=== PATIENT | male | born 1975 | race Caucasian/White ===

== ENCOUNTER → 2022-01-23 | Emergency (ER) | payer MEDICAID ==
[~2022-01-23] VITALS: Ht 177.8 cm; Wt 95.0 kg
[~2022-01-23] MED LIST: ASPIRIN 81MG TABLET PO ONE; HYDROCODONE/ACETAMINOPHEN 5/325MG TABLET PO ONE; IBUP-2029 MT; IBUPROFEN 600MG TABLET PO ONE; MORPHINE SULFATE 4 MG/ML CPJ (NOT FOR IM USE) IV ONE; SODIUM CHLORIDE 0.9% 1,000 ML IV ONE
[2022-01-23 23:25] LABS: BASOPHILS % 0.3 % (0.0-2.0); EOSINOPHILS % 0.1 % (0.0-5.0); HEMATOCRIT. 39.1 % (42.0-52.0); HEMOGLOBIN. 13.4 g/dL (14.0-18.0); MEAN CORPUSCULAR HEMOGLOBIN 30.2 pg (28.0-32.0); MEAN CORPUSCULAR VOLUME 88.3 fL (80.0-94.0); MEAN PLATELET VOLUME 6.9 fl (7.4-10.4); MONOCYTES % 3.9 % (2.0-8.0); NEUTROPHILS % 85.7 % (40.0-76.0); PLATELET 289 x1000/uL (130-400); RED BLOOD CELL COUNT 4.43 mill/uL (4.7-6.1); RED CELL DISTRIBUTION WIDTH 13.3 % (11.6-14.6)
[2022-01-23 23:29] LABS: CHLORIDE 110 mEq/L (98-107)
[2022-01-23 23:38] LABS: ETHANOL BLOOD < 10 mg/dL
[2022-01-24 04:37] VITALS: BP 111/73
== END ==
LOC: ER 19:19
DX: S52.92XA Unspecified fracture of left forearm, initial encounter for closed fracture (principal); I10 Essential (primary) hypertension; R55 Syncope and collapse; Z88.0 Allergy status to penicillin; W18.30XA Fall on same level, unspecified, initial encounter; Y93.89 Activity, other specified; Y92.89 Other specified places as the place of occurrence of the external cause; Y99.8 Other external cause status
CPT/HCPCS: 29105; 36415; 71045; 73110; 80053; 80320; 83690; 83880; 84484; 85025; 93005; 96361; 96374; 99285; J2270; J7030; Z7610; G0480